=== PATIENT | female | born 2000 | race Caucasian/White ===

== ENCOUNTER → 2019-01-01 | Outpatient (CLI) | payer OTHER ==
--- NOTE | 2019-01-01 16:19 | REP ---
Thoracic spine two views: There are no comparisons. Vertebral body heights and alignment are normal. Mineralization is normal. The pedicles are unremarkable. There is disc space narrowing at two levels at the mid thoracic spine compatible with degenerative disc disease. The disc spaces are otherwise unremarkable. Impression: Degenerative disc disease at the mid thoracic spine. Otherwise, negative thoracic spine. Electronically Signed by Tyree Reynoso MD 01/01/2019 04:11 P
--- NOTE | 2019-01-01 16:21 | REP ---
Acute abdominal series three views including PA chest and supine upright abdomen: PA chest: There are no comparisons. Lung mccarty are clear. Cardiac size is normal. The adina, mediastinum, skeletal structures are unremarkable. There is no free subdiaphragmatic air. Impression: Negative PA chest. Abdomen, supine upright views: The bowel gas pattern is normal. There are no calcifications. The skeletal structures and soft tissues otherwise are unremarkable. Impression: Normal bowel gas pattern. Electronically Signed by Tyree Reynoso MD 01/01/2019 04:12 P
== END ==
LOC: M LRY 15:49
PROVIDERS: ATTEND Nurse Practitioner Family
DX: M54.9 Dorsalgia, unspecified (principal); R10.10 Upper abdominal pain, unspecified